=== PATIENT | male | born 1975 | race Two or more races ===

== ENCOUNTER 2016-05-15 15:08 | Emergency (ER) | payer OTHER ==
[~2016-05-15] VITALS: Ht 182.9 cm; Wt 114.8 kg
[2016-05-15] MEDS ORDERED: [UNRECOGNIZED DRUG - CODE] PO (15:21)
[2016-05-15] MEDS ORDERED: LEVO200T4 PO (15:21)
[2016-05-15] MEDS ORDERED: MOTR200T44 PO (15:21)
[2016-05-15] MEDS ORDERED: VITA200016 PO (15:21)
[2016-05-15] MEDS ORDERED: VITA250L PO (15:21)
[2016-05-15] MEDS ORDERED: ACETAMINOPHEN 325 MG TAB PO ONE (17:00)
[2016-05-15 17:19] LABS: BASO % 0.6 % (0.0-1.0); EOS # 0.2 K/mm3 (0.0-0.50); EOS % 2.1 % (0.0-3.0); LARGE UNSTAINED CELL # 0.1 K/mm3 (0.0-0.4); LARGE UNSTAINED CELL % 1.4 % (0.0-4.0); LYMPH # 1.2 K/mm3 (1.5-4.5); MEAN CORPUSCULAR HEMOGLOBIN 29.3 pg (27.0-33.0); MEAN CORPUSCULAR HGB CONC 33.3 g/dl (32.0-36.5); MEAN CORPUSCULAR VOLUME 88.1 fl (80.0-96.0); MONO # 0.3 K/mm3 (0.0-0.8); MONO % 4.3 % (0.0-5.0); NEUTROPHILS # 5.9 K/mm3 (1.8-7.7); NEUTROPHILS % 76.4 % (36.0-66.0); PLATELET COUNT, AUTOMATED 172 k/mm3 (150-450); RED CELL DISTRIBUTION WIDTH 13.1 % (11.5-14.5); WHITE BLOOD COUNT 7.7 K/mm3 (4.0-10.0)
[2016-05-15 17:40] LABS: ANION GAP 7 MEQ/L (8-16); BLOOD UREA NITROGEN 7 MG/DL (7-18); CALCIUM LEVEL 8.9 MG/DL (8.5-10.1); CARBON DIOXIDE LEVEL 29 MEQ/L (21-32); CHLORIDE LEVEL 104 MEQ/L (98-107); GLOMERULAR FILTRATION RATE > 60.0 (>60); GLUCOSE, FASTING 90 MG/DL (70-105); INR 0.95; POTASSIUM SERUM 3.9 MEQ/L (3.5-5.1); SODIUM LEVEL 140 MEQ/L (136-145)
[2016-05-15 17:44] LABS: ERYTHROCYTE SEDIMENTATION RATE 1 mm/hr (0-15)
[2016-05-15] MEDS ORDERED: XARE15TA PO (18:08)
[2016-05-15] MEDS ORDERED: RIVAROXABAN 15 MG TAB (XARELTO) PO ONE (18:15)
[2016-05-15 18:31] VITALS: BP 134/84
--- NOTE | 2016-05-15 18:41 | REP ---
RIGHT LOWER EXTREMITY DOPPLER VENOUS ULTRASOUND: 05/15/2016. Clinical history. Right calf pain, evaluate for DVT. No prior study. Findings: Standard duplex techniques were utilized. The right common femoral and proximal femoral vein in the thigh are without filling defects in compressed fully. The distal femoral vein through popliteal vein to the tibioperoneal trunk shows occlusive thrombus and is noncompressible. There is respiratory variation and augmented flow in the common femoral and femoral vein of the thigh but none in the popliteal vein through the distal femoral vein. Color flow confirms these findings. Impression: 1. Positive examination for DVT with occlusive thrombus from the distal femoral vein in the thigh through the popliteal vein and tibial peroneal trunk in the proximal calf. Signed by Jamarcus Vargas MD 05/15/2016 06:48 P
== END 2016-05-15 18:51 | disposition home or self-care (01) ==
LOC: M ED 16:40
DX: I82.401 Acute embolism and thrombosis of unspecified deep veins of right lower extremity (principal); F17.200 Nicotine dependence, unspecified, uncomplicated; M19.90 Unspecified osteoarthritis, unspecified site; Z79.899 Other long term (current) drug therapy

== ENCOUNTER → 2016-08-15 | Outpatient (CLI) | payer OTHER ==
[~2016-08-15] MED LIST: LEVO200T4 PO; MOTR200T44 PO; VITA200016 PO; VITA250L PO; XARE15TA PO; [UNRECOGNIZED DRUG - CODE] PO
--- NOTE | 2016-08-15 11:33 | REP ---
RIGHT LOWER EXTREMITY DUPLEX DOPPLER VENOUS ULTRASOUND: Real-time compression and duplex Doppler interrogation of the right lower extremity deep venous system is performed and compared to a prior study of 05/15/2016. Partial thrombosis is seen in the right popliteal vein extending distally in the trifurcation vessels. No thrombus is seen in the right common femoral vein or superficial femoral vein with those vessels completely compressible with transducer pressure and demonstrating normal internal flow. IMPRESSION: Partial DVT right popliteal vein. This appears to represent residual thrombus compared to a prior study of 05/15/2016, with improvement of the occlusive DVT previously noted in the distal femoral vein and popliteal vein. Signed by Eddie Tidwell MD 08/15/2016 04:25 P
== END ==
LOC: M RAD 09:54
PROVIDERS: ATTEND Surgery
DX: I82.411 Acute embolism and thrombosis of right femoral vein (principal)

== ENCOUNTER → 2017-02-22 | Outpatient (REF) | payer OTHER | LOC: M SFHCLERA 09:53 | PROVIDERS: ATTEND Nurse Practitioner Family | DX: J02.9 Acute pharyngitis, unspecified (principal) ==

== ENCOUNTER → 2017-09-05 | Outpatient (CLI) | payer OTHER | LOC: M SLEEP 19:44 | DX: G47.33 Obstructive sleep apnea (adult) (pediatric) (principal); G47.61 Periodic limb movement disorder | CPT/HCPCS: 95810 ==

== ENCOUNTER → 2018-06-01 | Outpatient (CLI) | payer OTHER ==
[~2018-06-01] MED LIST changes: +FOLI0.8T PO; -[UNRECOGNIZED DRUG - CODE] PO
[2018-06-01 18:03] LABS: BASO # 0.1 10^3/uL (0.0-0.2); BASO % 0.8 % (0.0-1.0); EOS # 0.1 10^3/uL (0.0-0.50); EOS % 1.3 % (0.0-3.0); HEMATOCRIT 51.8 % (42.0-52.0); HEMOGLOBIN 17.2 g/dl (13.5-17.5); LYMPH # 1.6 10^3/uL (1.5-4.5); MEAN CORPUSCULAR HEMOGLOBIN 30.3 pg (27.0-33.0); MEAN CORPUSCULAR HGB CONC 33.2 g/dl (32.0-36.5); MEAN CORPUSCULAR VOLUME 91.4 fl (80.0-96.0); MONO # 0.5 10^3/uL (0.0-0.8); MONO % 8.6 % (0.0-5.0); NEUTROPHILS # 3.8 10^3/uL (1.8-7.7); PLATELET COUNT, AUTOMATED 210 10^3/uL (150-450); RED BLOOD COUNT 5.67 10^6/uL (4.30-6.10); WHITE BLOOD COUNT 6.1 10^3/uL (4.0-10.0)
[2018-06-01 18:05] LABS: ALBUMIN 4.2 GM/DL (3.2-5.2); ALT/SGPT 39 U/L (12-78); BILIRUBIN,TOTAL 0.3 MG/DL (0.2-1.0); BLOOD UREA NITROGEN 12 MG/DL (7-18); CALCIUM LEVEL 9.4 MG/DL (8.5-10.1); CARBON DIOXIDE LEVEL 29 MEQ/L (21-32); CHLORIDE LEVEL 106 MEQ/L (98-107); CREATININE FOR GFR 1.09 MG/DL (0.70-1.30); GLOMERULAR FILTRATION RATE > 60.0 (>60); GLUCOSE, FASTING 97 MG/DL (70-100); POTASSIUM SERUM 4.3 MEQ/L (3.5-5.1); SODIUM LEVEL 141 MEQ/L (136-145); TOTAL PROTEIN 7.6 GM/DL (6.4-8.2)
[2018-06-05 10:03] LABS: DRVV SCREEN 87.9 SEC; PTT LUPUS TYPE ANTICOAG SCREEN 2.1 (0-1.2)
[2018-06-05 10:37] LABS: DRVV CONFIRM 71.7 SEC; LUPUS CONFIRM RATIO 1.8
[2018-06-05 10:39] LABS: NORMALIZED RATIO 1.17 (0.00-1.20)
[2018-06-08 14:52] LABS: BETA-2 GLYCOPROTEIN I ABY IGA <9 (0-25); BETA-2 GLYCOPROTEIN I ABY IGG <9 (0-20); BETA-2 GLYCOPROTEIN I ABY IGM <9 (0-32)
== END ==
LOC: M SMT 14:38
PROVIDERS: ATTEND Internal Medicine Pulmonary Disease
DX: G47.33 Obstructive sleep apnea (adult) (pediatric) (principal); I26.99 Other pulmonary embolism without acute cor pulmonale
CPT/HCPCS: 36415; 80053; 81240; 82105; 82378; 85025; 85613; 85730; 86146; G0103

== ENCOUNTER → 2018-06-06 | Outpatient (REF) | payer OTHER | LOC: M SFHCLERA 18:30 | PROVIDERS: ATTEND Nurse Practitioner Family | DX: R53.81 Other malaise (principal) ==

== ENCOUNTER → 2018-06-19 | Outpatient (CLI) | payer OTHER ==
[~2018-06-19] MED LIST changes: +ISOVUE-370 76% 100ML VIAL (Q9967) As Ordered ONE
--- NOTE | 2018-06-22 15:15 | REP ---
CT ANGIOGRAM CHEST: TECHNIQUE: Axial contrast enhanced images from the thoracic inlet to the upper abdomen using 100 mL Isovue 370 intravenous contrast material with multiplanar reformations. COMPARISON: 04/25/2018 from [place], [place]. The previously noted bilateral pulmonary emboli appear to have resolved. The pulmonary arteries appear to opacify well with contrast with no definite filling defect. The heart is normal in size. There is no thoracic aortic aneurysm or dissection. There is no pleural or pericardial effusion. No significant mediastinal, hilar, or chest wall lymphadenopathy is seen. Small patchy parenchymal opacities in the posterior upper lobes bilaterally have decreases since the prior study. There is some mild bibasilar fibroatelectatic change. The visualized upper abdominal structures are unremarkable. IMPRESSION: Previously noted bilateral pulmonary emboli appear to have resolved. The previously noted patchy parenchymal opacities in the posterior right upper lobes have decreased in size. Electronically Signed by Eddie Tidwell MD 06/22/2018 06:31 P
== END ==
LOC: M RAD 11:02
PROVIDERS: ATTEND Internal Medicine Pulmonary Disease
DX: Z86.711 Personal history of pulmonary embolism (principal); J84.10 Pulmonary fibrosis, unspecified; R91.8 Other nonspecific abnormal finding of lung field
CPT/HCPCS: 71275; Q9967

== ENCOUNTER → 2018-08-06 | Outpatient (CLI) | payer OTHER ==
[~2018-08-06] MED LIST changes: -ISOVUE-370 76% 100ML VIAL (Q9967) As Ordered ONE
--- NOTE | 2018-08-10 21:53 | SLEEPCENT ---
DATE OF PROCEDURE: 08/06/2018 ORDERED BY: Dr. Mccracken Nocturnal polysomnography was performed for the titration of pressure therapy in this patient with obstructive sleep apnea syndrome with persistent symptoms despite the use of an auto titrating device. For testing the patient was fit with a ResMed AirFit F20 full face mask of medium size, 5 cm of water pressure were applied to the circuit and the lights were extinguished. 8 hours and 10 minutes of data were reviewed. There were 437 minutes of sleep identified. Sleep latency was normal at 12.5 minutes. Rapid eye movement (REM) latency was normal at 95 minutes. Sleep architecture was good with four REM cycles. Overall sleep efficiency 90.1%. The patient's electrocardiogram showed a sinus rhythm with an average heart rate of 66 beats per minute. EEG showed normal waveforms for awake and sleep. Respiratory events were fully palliated with continuous positive airway pressure (CPAP) at a pressure of +7. There was some limb activity noted. Limb movement arousal index was 18, and there were three trains of 30 events. IMPRESSION: 1. Obstructive sleep apnea syndrome (G47.33). 2. Periodic limb movement disorder (G47.61). Limb movement arousal index 18. RECOMMENDATIONS: Nightly use of pressure therapy at 7 cm of water was sufficient to address the patient's obstructive respiratory events. If sleep symptoms persist, interventions to reduce the frequency of arousal from limb activity may also be helpful.
== END ==
LOC: M SLEEP 19:26
PROVIDERS: ATTEND Internal Medicine Pulmonary Disease
DX: G47.33 Obstructive sleep apnea (adult) (pediatric) (principal)

== ENCOUNTER → 2018-12-21 | Outpatient (REF) | payer OTHER | LOC: M SFHCLERA 19:40 | PROVIDERS: ATTEND Nurse Practitioner Family | DX: J02.9 Acute pharyngitis, unspecified (principal) ==